=== PATIENT | female | born 1995 | race African-American/Black ===

== ENCOUNTER 2023-07-22 07:26 | Emergency (ER) | payer SELFPAY ==
[2023-07-22] MEDS ORDERED: Penicillin V Potassium 250 MG TAB ONE (08:00)
[2023-07-22] MEDS ORDERED: Ibuprofen 200 MG TAB ONE (08:00)
== END 2023-07-22 08:11 | disposition home or self-care (01) ==
LOC: NAV ERS 07:26
DX: K05.20 Aggressive periodontitis, unspecified (principal); F17.210 Nicotine dependence, cigarettes, uncomplicated
CPT/HCPCS: 99282

== ENCOUNTER 2025-09-15 09:34 | Emergency (ER) | payer SELFPAY | END 2025-09-15 10:35 | disposition home or self-care (01) | LOC: NAV ERS 09:34 | DX: B34.9 Viral infection, unspecified (principal); F17.290 Nicotine dependence, other tobacco product, uncomplicated | CPT/HCPCS: 87428; 99283 ==